=== PATIENT | male | born 1950 | race Caucasian/White ===

== ENCOUNTER 2016-05-02 17:50 | Inpatient (IN) | payer OTHER, MEDICARE ==
[~2016-05-02] VITALS: Ht 172.7 cm; Wt 83.9 kg
[~2016-05-02 17:50] MED LIST: AMLO10TA2 PO; FENO160T PO; LORA-474 PO; METO-309 PO; PRAV40TA2 PO
[2016-05-02 17:57] VITALS: O2SAT 97
[2016-05-02] MEDS ORDERED: FLUMAZENIL 1 MG/10 ML VIAL IV PUSH PRN (18:30)
[2016-05-02] MEDS ORDERED: PHENYTOIN INJ 1,000 MG in SODIUM CHLORIDE 0.9% INJ 100 ML IV ONE (18:30)
[2016-05-02] MEDS ORDERED: LORazepam 2 MG TAB PO PRN (18:30)
[2016-05-02] MEDS ORDERED: LORazepam 2 MG/ML VIAL IV PUSH PRN ×4 (18:30)
[2016-05-02] MEDS ORDERED: SODIUM CHLORIDE 0.9% FLUSH 5 ML FLUSH IVF PRN (18:30)
[2016-05-02] MEDS ORDERED: LORazepam 2 MG/ML VIAL IV PRN (18:45)
[2016-05-02] MEDS ORDERED: PHENYTOIN IV ONE (18:45)
[2016-05-02] MEDS ORDERED: SODIUM CHLOR 0.9% IV ONE (18:45)
[2016-05-02 20:00] VITALS: BP 152/72; PULSE 71; RESP 18; TEMP 98.2; O2SAT 96
[2016-05-02] MEDS: INSULIN ASPART SUPPLEMENTAL SCALE SQ SCH (20:15)
[2016-05-02] MEDS: METOPROLOL TARTRATE 50 MG TAB PO SCH (21:28)
[2016-05-02] MEDS: SODIUM CHLORIDE 0.9% FLUSH 5 ML FLUSH IVF SCH (21:29)
[2016-05-02 23:58] VITALS: BP 147/72; PULSE 67; RESP 18; TEMP 98.1; O2SAT 96
[2016-05-03] MEDS ORDERED: PHENYTOIN INJ 100 MG/2 ML VIAL IVS SCH (03:00)
[2016-05-03 04:00] VITALS: BP 145/80; PULSE 66; RESP 18; TEMP 98.4; O2SAT 96
[2016-05-03] MEDS: INSULIN ASPART SUPPLEMENTAL SCALE SQ SCH ×4 (05:41→20:46)
[2016-05-03 07:05] LABS: BICARBONATE 22.4 MEQ/L (21.0-32.0); POTASSIUM 3.2 MEQ/L (3.5-5.1)
[2016-05-03 07:06] LABS: AUTOMATED NEUTROPHIL # 7.9 TH/MM3 (1.8-7.7); BASOPHIL # 0.1 TH/MM3 (0-0.2); BASOPHIL % 0.5 % (0.0-2.0); EOSINOPHIL # 0.2 TH/MM3 (0-0.4); EOSINOPHIL % 1.4 % (0.0-4.0); HEMATOCRIT 35.8 % (39.0-51.0); HEMO FLAGS DIFF FINAL; LYMPH % 20.8 % (9.0-44.0); LYMPHOCYTE # 2.4 TH/MM3 (1.0-4.8); MEAN CELL VOLUME 85.2 FL (80.0-100.0); MEAN CORPUSCULAR HEMOGLOBIN 28.4 PG (27.0-34.0); MEAN CORPUSCULAR HGB CONC 33.4 % (32.0-36.0); MONO % 7.5 % (0.0-8.0); NEUT % 69.8 % (16.0-70.0); PLATELET COUNT 378 TH/MM3 (150-450); RED CELL DISTRIBUTION WIDTH 13.9 % (11.6-17.2); WHITE BLOOD COUNT 11.3 TH/MM3 (4.0-11.0)
[2016-05-03 08:00] VITALS: BP 165/80; PULSE 76; RESP 18; TEMP 97.8; O2SAT 97
[2016-05-03] MEDS ORDERED: PHENYTOIN SODIUM 100 MG CAP PO SCH (09:00)
--- NOTE | 2016-05-03 09:13 | HHI.HP ---
[facility] Service [place] [facility] Primary Care Physician Unknown Admission Diagnosis Diagnoses: Chief Complaint: Seizures Travel History International Travel<30 Days: No Contact w/Intl Traveler <30 Da: No Traveled to Known Affected Are: No History of Present Illness This is a 66-year-old male with history of hypertension, diabetes, dyslipidemia , multiple sclerosis and an episode of acute renal failure in January presenting to the hospital [facility] for psychiatric evaluation. Patient also has chronic opiate abuse. took him to [facility] for detox and withdrawal from opiate abuse however when he got into the car, he tried to dry away, was confused and cooperative. Patient admitted to psych unit for all: Withdrawal and more disorder secondary to substance abuse. While at the psych unit, patient was started on ativan for withdrawal symptoms. However patient had a seizure hence patient was transferred to the hospital. I started Dilantin , there is a questionable history of seizures in the past and patient taking Dilantin. Presently, patient is awake, alert, oriented, denies any chest pain, shortness of breath, nausea, vomiting or headache. He wants to go home. Review of Systems ROS Limitations: Other (All other pertinent systems were reviewed and are negative.) Past Family Social History Past Medical History Hypertension extending dyslipidemia Diabetes mellitus Multiple sclerosis Acute renal failure in January Past Surgical History Left shoulder surgery Reported Medications Lopressor (Metoprolol Tartrate) 50 Mg Tab 50 Mg PO Q12HR 0 Days Ativan (Lorazepam) 1 Mg Tab 1 Mg PO Q6HR 0 Days Pravastatin 40 Mg Tab 40 Mg PO DAILY Amlodipine (Amlodipine Besylate) 10 Mg Tab 10 Mg PO DAILY Fenofibrate 160 Mg Tab 160 Mg PO DAILY Allergies: Coded Allergies: No Known Allergies (Unverified , 05/01/16) Per ePe - Pharmacist - [facility], [facility] - [place], [place] [phone]. Family History Mother had cancer of unknown primary, no history of seizures or multiple myeloma in the family. Social History History of opiate abuse. Lives with . Physical Exam Vital Signs Vital Signs Date Time Temp Pulse Resp B/P Pulse Ox O2 Delivery O2 Flow Rate FiO2 1/1/17 04:00 98.4 66 18 145/80 96 05/02/16 23:58 98.1 67 18 147/72 96 05/02/16 20:00 98.2 71 18 152/72 96 05/02/16 17:57 97 3.00 Physical Exam Not in distress, well-nourished, looks stated age PERRL, pink conjunctiva without injection, anicteric Nose without bleeding, airway patent, oropharynx clear Supple neck, no masses or thyromegaly, trachea midline Normal rate and regular rhythm, no murmurs gallops or rubs appreciated. Clear to auscultation and symmetric bilaterally, normal respiratory effort. Normal bowel sounds, soft, non-tender, nondistended, no guarding. Extremities without clubbing, cyanosis, or edema. No rash of generalized distribution. Skin is warm and dry. Slow mentation, awake, alert, oriented to place person and time. Mildly confused. Mild tremors. Laboratory Laboratory Tests Test 05/03/16 03:10 White Blood Count 11.3 Red Blood Count 4.20 Hemoglobin 12.0 Hematocrit 35.8 Mean Corpuscular Volume 85.2 Mean Corpuscular Hemoglobin 28.4 Mean Corpuscular Hemoglobin 33.4 Concent Red Cell Distribution Width 13.9 Platelet Count 378 Mean Platelet Volume 8.9 Neutrophils (%) (Auto) 69.8 Lymphocytes (%) (Auto) 20.8 Monocytes (%) (Auto) 7.5 Eosinophils (%) (Auto) 1.4 Basophils (%) (Auto) 0.5 Neutrophils # (Auto) 7.9 Lymphocytes # (Auto) 2.4 Monocytes # (Auto) 0.9 Eosinophils # (Auto) 0.2 Basophils # (Auto) 0.1 CBC Comment DIFF FINAL Differential Comment Sodium Level 141 Potassium Level 3.2 Chloride Level 106 Carbon Dioxide Level 22.4 Anion Gap 13 Blood Urea Nitrogen 21 Creatinine 1.01 Estimat Glomerular Filtration 73 Rate Random Glucose 96 Calcium Level 9.0 Phenytoin (Dilantin) Level 7.2 Result Diagram: 05/03/1630905/03/16309 Assessment and Plan Assessment and Plan This is a 66-year-old male with history of hypertension, seizures and multiple sclerosis initially admitted at the psych unit [facility] however had an episode of seizure since patient was transferred to the hospital. Alcohol withdrawal seizures/delirium tremens-there is also a history of seizures in the past, was taking Dilantin?, Loaded with Dilantin intravenously , still with Subtherapeutic Dilantin levels, increase Dilantin 200 mg every 8 hours, check EEG. Restart CIWA protocol, admit as inpatient. Mood disorder-likely secondary to substance abuse, management per psychiatry, reconsult psychiatry. Still has a sitter and [facility]. Hypertension- continue atenolol and Norvasc, clonidine as needed. Dyslipidemia- continue fenofibrate and pravastatin Multiple ljyxksvqd-gksevy-wi as outpatient ? Multiple myeloma- CT scan of the head reviewed personally, no intracranial abnormality. Patient however have skull lucencies which may be consistent with multiple myeloma. Patient denies any bone pain, there is no note of anemia , hypercalcemia or renal disease however he had acute renal failure in January. Urine had proteinuria patient also has diabetes mellitus. Follow-up SPEP, UPEP Leukocytosis-likely stress-induced. Diabetes mellitus -sliding scale insulin, check hemoglobin A1c, patient previously and diabetes but had acute renal failure in January hence stopped. Hypokalemia-replaced DVT prophylaxis: Lovenox Physician Certification 2 Midnight Certification Type: Admission for Inpatient Services Order for Inpatient Services The services are ordered in accordance with Medicare regulations or non- Medicare payer requirements, as applicable. In the case of services not specified as inpatient-only, they are appropriately provided as inpatient services in accordance with the 2-midnight benchmark. Estimated LOS (days): 2 days is the estimated time the patient will need to remain in the hospital, assuming treatment plan goals are met and no additional complications. Post-Hospital Plan: Other (specify) (psych unit) Elodia Curry MD May 03, 2016 09:13
[2016-05-03] MEDS ORDERED: POTASSIUM CL 40 MEQ/30 ML LIQ UDC PO ONE (09:15)
[2016-05-03] MEDS: METOPROLOL TARTRATE 50 MG TAB PO SCH ×2 (10:47→20:50)
[2016-05-03] MEDS: FENOFIBRATE 145 MG TAB PO SCH (10:47)
[2016-05-03] MEDS: LORazepam 1 MG TAB PO PRN ×2 (10:47→18:06)
[2016-05-03] MEDS: PRAVASTATIN SOD 40 MG TAB PO SCH (10:47)
[2016-05-03] MEDS: SODIUM CHLORIDE 0.9% FLUSH 5 ML FLUSH IVF SCH ×2 (10:48→20:53)
[2016-05-03] MEDS: ENOXAPARIN SODIUM 40 MG/0.4 ML SYRINGE SQ SCH (10:50)
[2016-05-03] MEDS: PHENYTOIN INJ 100 MG/2 ML VIAL IVS SCH ×2 (11:29→20:53)
[2016-05-03 12:00] VITALS: BP 147/79; PULSE 63; RESP 18; TEMP 99; O2SAT 97
[2016-05-03 16:00] VITALS: BP 158/77; PULSE 67; RESP 18; TEMP 98.6; O2SAT 97
[2016-05-03 20:00] VITALS: BP 159/80; PULSE 67; RESP 20; TEMP 98.2; O2SAT 95
[2016-05-04 04:00] VITALS: BP 195/91; PULSE 67; RESP 20; TEMP 98.1; O2SAT 96
[2016-05-04 05:24] VITALS: BP 170/88
[2016-05-04] MEDS ORDERED: cloNIDine HCL 0.1 MG TAB PO ONE (05:45)
[2016-05-04] MEDS: PHENYTOIN INJ 100 MG/2 ML VIAL IVS SCH (05:48)
[2016-05-04] MEDS: INSULIN ASPART SUPPLEMENTAL SCALE SQ SCH ×4 (05:54→20:52)
[2016-05-04] MEDS: LORazepam 1 MG TAB PO PRN ×3 (06:46→18:33)
[2016-05-04 08:00] VITALS: BP 138/65; PULSE 66; RESP 20; TEMP 98.3; O2SAT 97
[2016-05-04] MEDS: PRAVASTATIN SOD 40 MG TAB PO SCH (08:41)
[2016-05-04] MEDS: SODIUM CHLORIDE 0.9% FLUSH 5 ML FLUSH IVF SCH ×2 (08:41→20:53)
[2016-05-04] MEDS: FENOFIBRATE 145 MG TAB PO SCH (08:41)
[2016-05-04] MEDS: METOPROLOL TARTRATE 50 MG TAB PO SCH ×2 (08:41→20:52)
[2016-05-04 09:33] LABS: BICARBONATE 26.7 MEQ/L (21.0-32.0); MAGNESIUM 1.8 MG/DL (1.5-2.5); POTASSIUM 3.6 MEQ/L (3.5-5.1)
--- NOTE | 2016-05-04 09:52 | HHI.PR ---
Subjective Remarks Follow-up for seizures next No seizures overnight, wants to go home, not confused. Denies any headache, nausea or vomiting. Not short of breath. Objective Vitals Vital Signs Date Time Temp Pulse Resp B/P Pulse Ox O2 Delivery O2 Flow Rate FiO2 05/04/16 08:00 98.3 66 20 138/65 97 05/04/16 05:24 170/88 05/04/16 04:00 98.1 67 20 195/91 96 05/03/16 20:40 Room Air 05/03/16 20:00 98.2 67 20 159/80 95 05/03/16 16:00 98.6 67 18 158/77 97 05/03/16 12:00 99.0 63 18 147/79 97 I/O 05/03/16 05/03/16 05/03/16 05/04/16 05/04/16 05/04/16 07:00 15:00 23:00 07:00 15:00 23:00 Intake Total 122 ml 720 ml 60 ml 60 ml Balance 122 ml 720 ml 60 ml 60 ml Intake Oral 120 ml 720 ml 60 ml 60 ml IV Total 2 ml # Voids 2 2 4 # Bowel Movements 0 0 1 Result Diagram: 05/03/16 0310 05/04/16 0834 Objective Remarks Not in distress, well-nourished, looks stated age PERRL, pink conjunctiva without injection, anicteric Nose without bleeding, airway patent, oropharynx clear Supple neck, no masses or thyromegaly, trachea midline Normal rate and regular rhythm, no murmurs gallops or rubs appreciated. Clear to auscultation and symmetric bilaterally, normal respiratory effort. Normal bowel sounds, soft, non-tender, nondistended, no guarding. Extremities without clubbing, cyanosis, or edema. No rash of generalized distribution. Skin is warm and dry. AAO x3, no cranial nerve deficits, moves all 4 extremities, no focal neurologic deficits, mild tremors. Anxious, A/P Assessment and Plan This is a 66-year-old male with history of hypertension, seizures and multiple sclerosis initially admitted at the psych unit [facility] however had an episode of seizure since patient was transferred to the hospital. Alcohol withdrawal seizures/delirium tremens-there is also a history of seizures in the past, was taking Dilantin?, Dilantin level was is not therapeutic, change Dilantin to 100 mg every 8 hours orally, check Dilantin levels in a few days. Continue CIWA protocol, seizure precautions, awaiting EEG results. Mood disorder-likely secondary to substance abuse, management per psychiatry, reconsult psychiatry today.. Still has a sitter and [facility]. Hypertension, uncontrolled- continue metoprolol and Norvasc, uncontrolled, start hydrochlorothiazide, clonidine as needed, could also be from withdrawal. Dyslipidemia- continue fenofibrate and pravastatin Multiple amvwwuktf-uaxoyk-pc as outpatient ? Multiple myeloma- CT scan of the head reviewed personally, no intracranial abnormality. Patient however have skull lucencies which may be consistent with multiple myeloma. Patient denies any bone pain, there is no note of anemia , hypercalcemia or renal disease however he had acute renal failure in January. Urine had proteinuria patient also has diabetes mellitus. Follow-up SPEP, UPEP from previous admission. Leukocytosis-likely stress-induced. Diabetes mellitus -sliding scale insulin, follow-up hemoglobin A1c, patient previously and diabetes but had acute renal failure in January hence stopped. Hypokalemia-replaced DVT prophylaxis: Elodia Aparicio MD May 04, 2016 09:52
[2016-05-04] MEDS: ENOXAPARIN SODIUM 40 MG/0.4 ML SYRINGE SQ SCH (10:50)
[2016-05-04] MEDS: HYDROCHLOROTHIAZIDE 12.5 MG CAP PO SCH (10:50)
[2016-05-04 12:00] VITALS: BP 140/77; PULSE 63; RESP 20; TEMP 98.1; O2SAT 98
[2016-05-04] MEDS: PHENYTOIN SODIUM 100 MG CAP PO SCH ×2 (14:42→20:52)
[2016-05-04 16:00] VITALS: BP 150/83; PULSE 69; RESP 20; TEMP 98.1; O2SAT 96
--- NOTE | 2016-05-04 16:49 | HHI.PYPN ---
Subjective Remarks Patient was seen and reevaluated today at bedside, patient reports feeling much better, he described his mood as fine, denies depressive symptoms, such as anhedonia, hopelessness, helplessness, worthlessness, guiltiness, probably with appetite, concentration or sleep, he denies suicidal or homicidal ideation, patient also denies perceptual disturbances, anxiety immediate. Patient states that his main problem is his addiction to opiates and benzodiazepines and he understands that he needs to go to a detox/rehabilitation program as he has already discussed with his . His ,Niurka Calderón, who was present during part of the evaluation, is states that she already contacted and initiated the admission of the patient in a rehabilitation program in the area. She does not think that the patient would benefit of psychiatric admission again, however she understand that if the patient does not go to rehabilitation program continues using drugs indiscriminately this is the first time that he is admitted in psychiatric. Review of Systems Constitutional: DENIES: Diaphoretic episodes, Fatigue, Fever, Weight gain, Weight loss, Chills, Dizziness, Change in appetite, Night Sweats Endocrine: DENIES: Heat/cold intolerance, Polydipsia, Polyuria, Polyphagia Eyes: DENIES: Blurred vision, Diplopia, Eye inflammation, Eye pain, Vision loss , Photosensitivity, Double Vision Ears, nose, mouth, throat: DENIES: Tinnitus, Hearing loss, Vertigo, Nasal discharge, Oral lesions, Throat pain, Hoarseness, Ear Pain, Running Nose, Epistaxis, Sinus Pain, Toothache, Odynophagia Respiratory: DENIES: Apneas, Cough, Snoring, Wheezing, Hemoptysis, Sputum production, Shortness of breath Cardiovascular: DENIES: Chest pain, Palpitations, Syncope, Dyspnea on Exertion , PND, Lower Extremity Edema, Orthopnea, Claudication Gastrointestinal: DENIES: Abdominal pain, Black stools, Bloody stools, Constipation, Diarrhea, Nausea, Vomiting, Difficulty Swallowing, Anorexia Genitourinary: DENIES: Sexual dysfunction, Urinary frequency, Urinary incontinence, Urgency, Hematuria, Dysuria, Nocturia, Penile Discharge, Testicular Pain, Testicular Swelling Musculoskeletal: DENIES: Joint pain, Muscle aches, Stiffness, Joint Swelling, Back pain, Neck pain Integumentary: DENIES: Abnormal pigmentation, Nail changes, Pruritus, Rash Hematologic/lymphatic: DENIES: Bruising, Lymphadenopathy Immunologic/allergic: DENIES: Eczema, Urticaria Neurologic: DENIES: Abnormal gait, Headache, Localized weakness, Paresthesias, Seizures, Speech Problems, Tremor, Poor Balance Psychiatric: DENIES: Anxiety, Confusion, Mood changes, Depression, Hallucinations, Agitation, Suicidal Ideation, Homicidal Ideation, Delusions Objective Alert: Yes [place]: Person, Place, Date, Situation Mood: Calm Affect: Euthymic Memory Intact: Immediate, Recent, Remote Hallucinations: Other (none) Delusions: No Delusion Type: Other (none) Suicidal: Ideation (he denies) Homicidal: Ideation (he denies) Insight/Judgement Fair Labs Test 05/04/16 08:34 Sodium Level 136 MEQ/L Potassium Level 3.6 MEQ/L Chloride Level 101 MEQ/L Carbon Dioxide Level 26.7 MEQ/L Anion Gap 8 MEQ/L Blood Urea Nitrogen 15 MG/DL Creatinine 0.96 MG/DL Estimat Glomerular Filtration 78 ML/MIN Rate Random Glucose 120 MG/DL Calcium Level 8.9 MG/DL Magnesium Level 1.8 MG/DL Phenytoin (Dilantin) Level 12.1 MCG/ML Vitals/IOs Vital Signs Date Time Temp Pulse Resp B/P Pulse Ox O2 Delivery O2 Flow Rate FiO2 05/04/16 09:00 Room Air 05/04/16 08:00 98.3 66 20 138/65 97 05/02/16 17:57 3.00 Intake and Output 05/03/16 05/03/16 05/03/16 07:59 15:59 23:59 Intake Total 122 ml 720 ml 60 ml Balance 122 ml 720 ml 60 ml Assessment & Plan Problem List: (1) Substance induced mood disorder Assessment & Plan: At the moment of this evaluation the patient does not present any acute, concerning, significant, objective or subjective evidence of depression, anxiety, gloria or perceptual disturbances. Patient seems to be a little bit confused at times, but completely redirectable most probably secondary to seizures, post ictal state. He denies suicidal or homicidal ideation, he denies visual and auditory hallucinations. The patient does not benefit of inpatient psychiatric admission at this moment, he and his , both expressed agreement and understanding of the benefits of discharging the patient to a rehabilitation program for his addiction to benzodiazepines and opiates. Brief supportive psychotherapy, and motivational interview was provided to the patient. [facility] can be lifted. Sitter can be discontinue. ICD Code: F19.94 Assessment & Plan Estimated LOS: days Justification for Cont. Inpt. Patient will be discharged to a rehabilitation program after he is medically cleared. Fortunato Romero MD May 04, 2016 16:48
[2016-05-04 17:50] LABS: HEMOGLOBIN A1b 1.7 %; HEMOGLOBIN Ao 84.6 %; HEMOGLOBIN LA1C 1.8 %; HEMOGLOBIN P3 3.9 %
--- NOTE | 2016-05-04 19:12 | MG ---
cc: VIOLET AQUINO Lab No: Date: Age: Sex: M Race: ELECTROENCEPHALOGRAM NUMBER [id number] INTRODUCTION [facility]. Psychiatric problems. Acute renal failure. MEDICATIONS Dilantin. DESCRIPTION The recording shows a symmetric 8-9 Hz 60 microvolt posterior and diffuse rhythm. The recording overall is synchronous and symmetric. Photic stimulation was performed without significant posterior driving. Hyperventilation was performed without significant change in the background. IMPRESSION Essentially normal EEG, no evidence for focal or diffuse abnormality. MD GILMA Bansal/KK /6:42 PM /7:08 PM
[2016-05-04 20:49] VITALS: BP 128/78; PULSE 77; RESP 20; TEMP 98.9; O2SAT 97
[2016-05-05] MEDS: LORazepam 1 MG TAB PO PRN ×4 (00:35→13:04)
[2016-05-05 04:00] VITALS: BP 139/72; PULSE 71; RESP 20; TEMP 98.1; O2SAT 97
[2016-05-05] MEDS: PHENYTOIN SODIUM 100 MG CAP PO SCH ×2 (04:19→11:30)
[2016-05-05] MEDS: INSULIN ASPART SUPPLEMENTAL SCALE SQ SCH ×2 (05:37→11:00)
[2016-05-05 08:00] VITALS: BP 149/93; PULSE 91; RESP 20; TEMP 96.4; O2SAT 97
[2016-05-05] MEDS: SODIUM CHLORIDE 0.9% FLUSH 5 ML FLUSH IVF SCH (08:54)
[2016-05-05] MEDS: METOPROLOL TARTRATE 50 MG TAB PO SCH (08:54)
[2016-05-05] MEDS: PRAVASTATIN SOD 40 MG TAB PO SCH (08:54)
[2016-05-05] MEDS: HYDROCHLOROTHIAZIDE 12.5 MG CAP PO SCH (08:54)
[2016-05-05] MEDS: FENOFIBRATE 145 MG TAB PO SCH (08:54)
[2016-05-05] MEDS ORDERED: DILA100C PO (09:13)
[2016-05-05] MEDS ORDERED: HYDR12.57 PO (09:13)
--- NOTE | 2016-05-05 09:14 | HHI.DS ---
Discharge Summary Admission Date May 02, 2016 at 17:50 Discharge Date: May 05, 2016 Admitting Diagnosis (1) Mood disorder ICD Code: F39 Diagnosis: Secondary (2) Benzodiazepine dependence ICD Code: F13.20 Diagnosis: Secondary (3) Benzodiazepine withdrawal with delirium ICD Code: F13.231 Diagnosis: Secondary (4) Seizure ICD Code: R56.9 Diagnosis: Principal Procedures None Brief History - From Admission This is a 66-year-old male with history of hypertension, diabetes, dyslipidemia , multiple sclerosis and an episode of acute renal failure in January presenting to the hospital [facility] for psychiatric evaluation. Patient also has chronic opiate abuse. took him to [facility] for detox and withdrawal from opiate abuse however when he got into the car, he tried to dry away, was confused and cooperative. Patient admitted to psych unit for all: Withdrawal and more disorder secondary to substance abuse. While at the psych unit, patient was started on ativan for withdrawal symptoms. However patient had a seizure hence patient was transferred to the hospital. I started Dilantin , there is a questionable history of seizures in the past and patient taking Dilantin. Presently, patient is awake, alert, oriented, denies any chest pain, shortness of breath, nausea, vomiting or headache. He wants to go home. CBC/BMP: 05/03/16 0310 05/04/16 0834 Significant Findings Laboratory Tests Test 05/03/16 05/04/16 03:10 08:34 White Blood Count 11.3 TH/MM3 (4.0-11.0) Red Blood Count 4.20 MIL/MM3 (4.50-5.90) Hemoglobin 12.0 GM/DL (13.0-17.0) Hematocrit 35.8 % (39.0-51.0) Neutrophils # (Auto) 7.9 TH/MM3 (1.8-7.7) Potassium Level 3.2 MEQ/L (3.5-5.1) Blood Urea Nitrogen 21 MG/DL (7-18) Estimat Glomerular Filtration 73 ML/MIN (>89) 78 ML/MIN (>89) Rate Phenytoin (Dilantin) Level 7.2 MCG/ML (10.0-20.0) Hemoglobin A1c 6.5 % (4.3-6.0) Random Glucose 120 MG/DL (74-106) PE at Discharge Not in distress, well-nourished, looks stated age PERRL, pink conjunctiva without injection, anicteric Nose without bleeding, airway patent, oropharynx clear Supple neck, no masses or thyromegaly, trachea midline Normal rate and regular rhythm, no murmurs gallops or rubs appreciated. Clear to auscultation and symmetric bilaterally, normal respiratory effort. Normal bowel sounds, soft, non-tender, nondistended, no guarding. Extremities without clubbing, cyanosis, or edema. No rash of generalized distribution. Skin is warm and dry. AAO x3, no cranial nerve deficits, moves all 4 extremities, no focal neurologic deficits, mild tremors. Anxious, Pt update on day of discharge No overnight events, not confused. Done with withdrawals. Discussed with patient's , patient was not on phenytoin before but there is a questionable history of seizures and being on phenytoin the past. Patient refuses to go to drug rehabilitation. Hospital Course This is a 66-year-old male with history of hypertension, seizures and multiple sclerosis initially admitted at the psych unit [facility] however had an episode of seizure since patient was transferred to the hospital. Patient was started on Dilantin since there is a questionable history of seizures in the past and patient being on Dilantin. Patient more likely had withdrawal seizures. Withdrawal resolved after patient was placed on CIWA protocol. EEG results were negative. For now, because of question with history of seizures, we'll continue Dilantin and follow-up with primary care physician in 1-2 weeks. Drug rehabilitation was recommended but patient refused. Psychiatry cleared the patient for discharge. He was also started on hydrochlorothiazide for his hypertension and will continue Norvasc and metoprolol. Of note, when he initially came in, CT scan of the head did not show any acute intracranial abnormality but showed skull lucencies which may be consistent with multiple myeloma. This was discussed with the . Patient denies any bone pain, there is no note of anemia, hypercalcemia or renal disease however he had acute renal failure in January. Urine had proteinuria patient also has diabetes mellitus. SPEP, UPEP were done, results need to be followed up with his primary care physician and this was discussed with the . Patient will be discharged home today Pt Condition on Discharge: Good Discharge Disposition: Discharge Home Discharge Time: > 30 minutes Discharge Instructions DIET: Follow Instructions for: Heart Healthy Diet Activities you can perform: Regular-No Restrictions Follow up Referrals: PCP Follow-up - 1 Week New Medications: Hydrochlorothiazide (Hydrochlorothiazide) 12.5 Mg Cap 12.5 MG PO DAILY HTN #30 CAP Phenytoin Extended (Dilantin) 100 Mg Cap 100 MG PO Q8HR seizures #90 CAP Continued Medications: Amlodipine (Amlodipine) 10 Mg Tab 10 MG PO DAILY Blood Pressure Management #30 Ref 0 TAB Fenofibrate (Fenofibrate) 160 Mg Tab 160 MG PO DAILY #30 Ref 0 TAB Metoprolol Tartrate (Lopressor) 50 Mg Tab 50 MG PO Q12HR Blood Pressure Management Days 0 Ref 0 TAB Pravastatin (Pravastatin) 40 Mg Tab 40 MG PO DAILY Cholesterol Management #30 Ref 0 TAB Discontinued Medications: Lorazepam (Ativan) 1 Mg Tab 1 MG PO Q6HR Alcohol detox Days 0 Ref 0 TAB Elodia Curry MD May 05, 2016 09:14 40 MG PO DAILY Cholesterol Management #30 Ref 0 TAB Discontinued Medications: Lorazepam (Ativan) 1 Mg Tab 1 MG PO Q6HR Alcohol detox Days 0 Ref 0 TAB Elodia Curry MD May 05, 2016 09:14
[2016-05-05] MEDS: ENOXAPARIN SODIUM 40 MG/0.4 ML SYRINGE SQ SCH (11:00)
[2016-05-05 12:00] VITALS: BP 147/71; PULSE 63; RESP 20; TEMP 98.2; O2SAT 97
== END 2016-05-05 13:26 | disposition home or self-care (01) | DRG 101 ==
LOC: N04A 17:50 → INTOOBSV 17:50 → UNDOADMOB 17:50 → OBSVTOIN 17:50 → N04A 18:26 → OBSVTOIN 05-03 10:14 → UNDODISOB 05-05 13:26
PROVIDERS: ADMIT Hospitalist; ATTEND Hospitalist
DX: R56.9 Unspecified convulsions (principal); N17.9 Acute kidney failure, unspecified; F10.231 Alcohol dependence with withdrawal delirium; G35 Multiple sclerosis; I10 Essential (primary) hypertension; E11.9 Type 2 diabetes mellitus without complications; D72.829 Elevated white blood cell count, unspecified; F13.239 Sedative, hypnotic or anxiolytic dependence with withdrawal, unspecified; F39 Unspecified mood [affective] disorder; E78.5 Hyperlipidemia, unspecified; E87.6 Hypokalemia; R80.9 Proteinuria, unspecified; F11.24 Opioid dependence with opioid-induced mood disorder
CPT/HCPCS: 80048; 80185; 82948; 83036; 83735; 85025; 95819; J1165; J1650; J1815; J2060